=== PATIENT | female | born 1970 | race Caucasian/White ===

== ENCOUNTER → 2016-10-26 | Outpatient (CLI) | payer OTHER ==
[~2016-10-26] MED LIST: NEXIUM PO; PRILOSEC20 MG PO
--- NOTE | ~2016-10-26 | CT2 ---
[facility] A Service of [facility] & [facility] RADIOLOGY TEXT RESULTS PATIENT: RICCO LEÓN LOCATION: [facility] : 74 UNIT #: [id number] AGE: [address]: Nuris Orta APRN SEX: F ORDER DR: [id number] [address] [address] [id number] O MR#: [id number] Acc #: [id number] NAME: RICCO LEÓN : 1970 SEX: F STUDY DATE/TIME: 10/26/2016 15:17 UNIT: [facility] ROOM: STUDY DESCRIPTION: CT Abd and Pelv W Cont Attending Physician: Nuris Orta A.P.R.N. Referring Physician: Nuris Orta A.P.R.N. Ordering Physician: Nuris Orta A.P.R.N. Primary Care Physician: Agnieszka Noyola M.D. MEDICAL IMAGING REPORT This report is preliminary unless electronic signature is present. EXAM CT abdomen and pelvis with contrast. HISTORY Pain in the right lower quadrant for 2 days. TECHNIQUE The patient was given 100 cc of Isovue 370 and axial 5 mm images were obtained through the abdomen and pelvis. Sagittal and coronal reconstructions were generated. Oral contrast was also administered. This CT exam was performed with one or more of the following radiation dose reduction techniques: automatic exposure control, adjustment of mA and/or kV according to patient size, and iterative reconstruction. FINDINGS Lung bases are clear. The liver, gallbladder, spleen, pancreas, adrenal glands and kidneys are normal in appearance. The aorta is normal in size and there is no adenopathy. The bowel, including the appendix appears normal. The uterus and adnexa regions and bladder are normal. The bones are unremarkable. There is oral contrast in the cecum. There is a very small appendix seen extending posteriorly in the retrocecal location. The base of the appendix is slightly thickened, but it appears to be due to fatty infiltration of the wall. IMPRESSION 1. There is no evidence of appendicitis and the appendix is normal. 2. No cause of the patient's right lower quadrant pain is identified. 3. The study is normal in appearance. [facility] A Service of [facility] & [facility] RADIOLOGY TEXT RESULTS PATIENT: RICCO LEÓN LOCATION: [facility] : 74 UNIT #: [id number] AGE: [address]: Nuris Orta APRN SEX: F ORDER DR: Dictated by... Chacorta hWitt M.D. THIS IS AN ELECTRONICALLY VERIFIED REPORT Chacorta Whitt M.D. at 10/27/2016 12:33 PM FEL/gz TD: 10/27/2016 07:29 JOB #: [id number] MEDICAL IMAGING REPORT Page 1 of 1
== END | disposition home or self-care (01) ==
LOC: SCT 13:06
DX: R10.9 Unspecified abdominal pain (principal)
CPT/HCPCS: 74177; Q9967